=== PATIENT | female | born 1965 | race Caucasian/White ===

== ENCOUNTER 2018-10-09 12:31 | Inpatient (IN) | payer SELFPAY ==
[2018-10-09] MEDS ORDERED: LORazepam 2 MG/ML VIAL ONE (13:15)
[2018-10-09 13:20] LABS: Absolute Monocytes 0.3 K/uL (0.1-1.3); Basophils % 0.3 % (0-1.3); Hematocrit 40.2 % (36.0-45.0); Lymphocytes % 19.2 % (15.3-44.8); MCH 30.6 pg (27.0-35.0); MCV 88.9 fL (80-100); MPV 7.7 fL (7.6-11.3); Monocytes % 3.1 % (3.3-12.3); RBC Red Blood Cell Count 4.52 M/uL (3.86-4.86)
[2018-10-09 13:22] LABS: Protime INR 0.95
--- NOTE | 2018-10-09 13:34 | RAD REPORT ---
EXAM DESCRIPTION: CT - Head Brain Wo Cont - 10/09/2018 1:23 pm CLINICAL HISTORY: Transient alteration of awareness COMPARISON: None. TECHNIQUE: Axial 5 mm thick images of the head were obtained without IV contrast. All CT scans are performed using dose optimization technique as appropriate and may include automated exposure control or mA/KV adjustment according to patient size. FINDINGS: No intracranial hemorrhage, mass, edema or shift of mid-line structures. No acute infarcti on changes seen. No abnormal extra-axial fluid collections. Ventricles are normal. Mastoid air cells and visualized portions of the paranasal sinuses are clear. No acute bony findings. IMPRESSION: Negative non-contrast CT head examination.
[2018-10-09 13:37] LABS: ALT/SGPT 23 U/L (12-78); AST/SGOT 23 U/L (15-37); Albumin 3.8 g/dL (3.4-5.0); Alkaline Phosphatase 93 U/L (45-117); BUN Blood Urea Nitrogen 16 mg/dL (7-18); Bicarbonate 20 mmol/L (21-32); Bilirubin Direct 0.2 mg/dL (0-0.2); Bilirubin Total 0.5 mg/dL (0.2-1.0); Glucose Level 164 mg/dL (74-106); Potassium 3.7 mmol/L (3.5-5.1); Protein, Total 7.7 g/dL (6.4-8.2); Sodium Level 138 mmol/L (136-145)
[2018-10-09] MEDS ORDERED: NA CHLORIDE 0.9% 1,000 ML ONE ×2 (13:42→16:17)
[2018-10-09 14:48] LABS: Barbiturates NEGATIVE (NEGATIVE); Benzodiazepines NEGATIVE (NEGATIVE); Cocaine NEGATIVE (NEGATIVE); METHAMPHETAM NEGATIVE (NEGATIVE); Methadone NEGATIVE (NEGATIVE); Opiates NEGATIVE (NEGATIVE); Phencyclidine NEGATIVE (NEGATIVE); THC Cannibis NEGATIVE (NEGATIVE)
[2018-10-09 14:56] LABS: Arterial Blood Carboxyhemoglob 1.7 % (0-1.5); Blood O2 Saturation 96.7 % (92-98.5)
--- NOTE | 2018-10-09 16:12 | ER ---
Nurse's Notes [facility] Name: Doris Lazo Age: 53 yrs Sex: Female : 1965 Arrival Date: 10/09/2018 Time: 12:34 Bed 18 Private MD: Diagnosis: Toxic effect of other alcohols Presentation: 10/09 12:42 Presenting complaint: states: "She's been acting confused this morning and not aj really talking to anyone. No one has been home with her since Wednesday so we don't know how long this has been going on. I think it may be from her drinking, but we really don't know when she's drinking because she hides it." Patient appears obtunded. Oriented to person and situation. Ketones noted on breath. Transition of care: patient was not received from another setting of care. Onset of symptoms is unknown. Risk Assessment: Do you want to hurt yourself or someone else? Patient reports no desire to harm self or others. Initial Sepsis Screen: Does the patient meet any 2 criteria? HR > 90 bpm. Does the patient have a suspected source of infection?. Care prior to arrival: None. 12:42 Method Of Arrival: Wheelchair aj 12:42 Acuity: CHARLIE 2 aj Triage Assessment: 12:46 The onset of the patients symptoms was at an unknown time. General: Appears in no aj apparent distress. uncomfortable, Behavior is anxious, crying, Smells of ketones. EENT: Oral mucosa is dry. Neuro: Level of Consciousness is awake, confused, Oriented to person, situation, Gait is unsteady, Speech with expressive aphasia noted, Facial symmetry appears normal. Respiratory: Airway is patent Respiratory effort is even, unlabored, Respiratory pattern is symmetrical, tachypnea. Derm: Skin is intact, is healthy with good turgor, Skin is pink, warm \\T\\ dry. normal. 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 - Social history:: Smoking status: unknown Patient uses alcohol. - Ebola Screening: : Patient negative for fever greater than or equal to 101.5 degrees Fahrenheit, and additional compatible Ebola Virus Disease symptoms Patient denies exposure to infectious person Patient denies travel to an Ebola-affected area in the 21 days before illness onset No symptoms or risks identified at this time. Screenin:47 Abuse screen: Denies threats or abuse. Denies injuries from another. Nutritional iw screening: No deficits noted. Tuberculosis screening: No symptoms or risk factors identified. Fall Risk IV access (20 points). Assessment: 12:45 General: Appears uncomfortable, Behavior is cooperative. Pain: Denies pain. Neuro: em Level of Consciousness is awake, alert, obeys commands, Oriented to person, place, time, Speech is slurred, pt answers "yes" to everything asked. Facial symmetry appears normal, Pupils are PERRLA. Cardiovascular: Patient's skin is warm and dry. Rhythm is sinus tachycardia Chest pain is denied. Respiratory: Airway is patent Respiratory effort is even, unlabored, Respiratory pattern is regular, symmetrical. GI: Abdomen is flat. Derm: Skin is intact, Skin is pink, warm \\T\\ dry. Musculoskeletal: Reports weakness in right leg and left leg. 12:47 Reassessment: I agree with previous assessment. 12:48 Reassessment: at bedside to assess patient, pt is alert, oriented to person, iw place. 13:45 Reassessment: Patient appears in no apparent distress at this time. pt appears to be iw sleeping, awakens easily to verbal stimuli, appears more relaxed, HR down to 124, UZ=256/91, daughter at bedside, updated on POC, fluids infusing freely. 14:41 Reassessment: Patient appears in no apparent distress at this time. Patient and/or em family updated on plan of care and expected duration. Pain level reassessed. resting comfortably with eyes closed, skin warm pink and dry, respirations even and unlabored, easily awakens with verbal stimuli, family at bedside, pending lab results. 15:50 Reassessment: Patient appears in no apparent distress at this time. Patient and/or em family updated on plan of care and expected duration. Pain level reassessed. Patient is alert, oriented x 3, equal unlabored respirations, skin warm/dry/pink. 16:45 Reassessment: Patient appears in no apparent distress at this time. Patient and/or em family updated on plan of care and expected duration. Pain level reassessed. Patient is alert, oriented x 3, equal unlabored respirations, skin warm/dry/pink. pending room assignment Patient states symptoms have improved. 17:40 Reassessment: Patient appears in no apparent distress at this time. Patient and/or em family updated on plan of care and expected duration. Pain level reassessed. Patient is alert, oriented x 3, equal unlabored respirations, skin warm/dry/pink. pt reports drinking rubbing alcohol to "numb my feelings" denies being suicidal. 18:31 Reassessment: Patient appears in no apparent distress at this time. Patient and/or em family updated on plan of care and expected duration. Pain level reassessed. Patient is alert, oriented x 3, equal unlabored respirations, skin warm/dry/pink. Patient states symptoms have improved. 19:24 Reassessment: Patient appears in no apparent distress at this time. Patient and/or jd3 family updated on plan of care and expected duration. Pain level reassessed. Patient is alert, oriented x 3, equal unlabored respirations, skin warm/dry/pink. pt resting in bed with eyes closed, with even and unlabored respirations, no distress noted at this time. 20:14 Reassessment: Patient appears in no apparent distress at this time. No changes from jd3 previously documented assessment. Patient and/or family updated on plan of care and expected duration. Pain level reassessed. Patient is alert, oriented x 3, equal unlabored respirations, skin warm/dry/pink. Vital Signs: 12:46 BP 141 / 103; Pulse 148; Resp 25; Pulse Ox 97% on R/A; Weight 74.84 kg; Height 5 ft. 1 aj in. (154.94 cm); 13:32 BP 137 / 90; Pulse 114; Resp 20; Temp 99.1(O); Pulse Ox 96% on R/A; Pain 0/10; em 14:30 BP 135 / 89; Pulse 110; Resp 18; Pulse Ox 98% on R/A; em 15:30 BP 112 / 73; Pulse 123; Resp 19; Pulse Ox 97% on R/A; em 16:23 BP 124 / 71; Pulse 116; Resp 16; Pulse Ox 99% on R/A; em 17:47 BP 125 / 77; Pulse 117; Resp 19; Pulse Ox 97% on R/A; Pain 0/10; em 18:32 BP 110 / 63; Pulse 125; Resp 18; Pulse Ox 98% on R/A; em 19:23 BP 120 / 85; Pulse 115; Resp 16 S; Pulse Ox 97% on R/A; Pain 0/10; jd3 20:00 BP 97 / 69; Pulse 111; Resp 16 S; Pulse Ox 96% on R/A; jd3 12:46 Body Mass Index 31.18 (74.84 kg, 154.94 cm) aj ED Course: 12:34 Patient arrived in ED. mr 12:42 Olga Lidia Duong, RN is Primary Nurse. aj 12:45 Triage completed. aj 12:45 Gino Layne MD is Attending Physician. gs 12:45 Patient has correct armband on for positive identification. Fall risk band placed. em Placed in gown. Bed in low position. Call light in reach. Side rails up X2. Adult w/ patient. conveyor monitor on. Pulse ox on. NIBP on. 12:46 Arm band placed on left wrist. Patient placed in an exam room. aj 12:48 Notified ED physician of other Patient's condition and need for prompt evaluation. aj 13:00 Steve Xavier LVN is Primary Nurse. em 13:23 Head Brain Wo Cont In Process Unspecified. EDMS 14:31 Urine collected: straight cath specimen, sydnie colored. [facility] 14:31 Straight cath inserted, using sterile technique, 16 Fr. Specimen obtained. [facility] 14:32 Urine Drug Screen Sent. [facility] 16:10 Darrick Degroot MD is Hospitalizing Provider. gs 17:37 X-ray completed. Patient tolerated procedure well. Patient moved back from radiology. kp1 20:14 No provider procedures requiring assistance completed. Patient admitted, IV remains in jd3 place. Administered Medications: 13:18 Drug: Ativan 1 mg Route: IVP; Site: left antecubital; iw 13:38 Drug: NS 0.9% 1000 ml Route: IV; Rate: 1 bolus; Site: left antecubital; em 15:57 Follow up: IV Status: Completed infusion; IV Intake: 1000ml em 16:10 Drug: NS 0.9% 1000 ml Route: IV; Rate: 150 ml/hr; Site: left antecubital; em 20:14 Follow up: Response: No adverse reaction; IV Status: Infusion continued upon admission shiv Point of Care Testing: Blood Glucose: 12:46 Blood Glucose: 146 mg/dL; aj Ranges: Intake: 15:57 IV: 1000ml; Total: 1000ml. em Outcome: 16:12 Decision to Hospitalize by Provider. gs 20:15 Admitted to Med/surg accompanied by nurse, via stretcher, room 403, with chart, Report jd3 called to Ann CANTU 20:15 Condition: stable 20:15 Instructed on the need for admit, Demonstrated understanding of instructions. 20:16 Patient left the ED. shiv Signatures: Dispatcher [employer] Olga Lidia Alfonso, RN ALONDRA Abdifatah, Sandra mr Xavier, Steve, LABOR GANG SUPERVISOR LABOR GANG SUPERVISOR Colleen Horn, Elsi Martell RN, RN ALONDRA Angel, Heidi 5 Ghulam, Sanaz 1 Gino Layne MD MD gs Davies, Jonathon, RN RN jd3 Corrections: (The following items were deleted from the chart) 12:49 12:48 Reassessment: at bedside to assess patient iw
--- NOTE | 2018-10-09 16:13 | EDPHYS ---
Physician Documentation [facility] Name: Doris Lazo Age: 53 yrs Sex: Female : 1965 Arrival Date: 10/09/2018 Time: 12:34 Bed 18 Private MD: ED Physician Gino Layne HPI: 10/09 16:26 This 53 yrs old Female presents to ER via Wheelchair with complaints of gs Trouble Talking. 16:26 The patient presents with confusion. Onset: The symptoms/episode began/occurred 2 gs day(s) ago, and became persistent. Possible causes: alcohol, has a history of chronic alcohol abuse. Associated signs and symptoms: Pertinent positives: confusion, dizziness, Pertinent negatives: agitation, blurred vision. Patient's baseline: Neuro: alert and fully oriented, Motor: no deficits, Ambulation: walks without assistance, Speech: normal. The patient has experienced similar episodes in the past, a few times, but today's symptoms are worse. The patient has not recently seen a physician. 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 - Social history:: Smoking status: unknown Patient uses alcohol. - Ebola Screening: : Patient negative for fever greater than or equal to 101.5 degrees Fahrenheit, and additional compatible Ebola Virus Disease symptoms Patient denies exposure to infectious person Patient denies travel to an Ebola-affected area in the 21 days before illness onset No symptoms or risks identified at this time. ROS: 16:26 Unable to obtain ROS due to patient's inability to understand questions. gs Exam: 16:26 Head/Face: Normocephalic, atraumatic. Eyes: Pupils equal round and reactive to light, gs extra-ocular motions intact. Lids and lashes normal. Conjunctiva and sclera are non-icteric and not injected. Cornea within normal limits. Periorbital areas with no swelling, redness, or edema. ENT: Nares patent. No nasal discharge, no septal abnormalities noted. Tympanic membranes are normal and external auditory canals are clear. Oropharynx with no redness, swelling, or masses, exudates, or evidence of obstruction, uvula midline. Mucous membranes moist. Neck: Trachea midline, no thyromegaly or masses palpated, and no cervical lymphadenopathy. Supple, full range of motion without nuchal rigidity, or vertebral point tenderness. No Meningismus. Chest/axilla: Normal chest wall appearance and motion. Nontender with no deformity. No lesions are appreciated. Respiratory: Lungs have equal breath sounds bilaterally, clear to auscultation and percussion. No rales, rhonchi or wheezes noted. No increased work of breathing, no retractions or nasal flaring. Abdomen/GI: Soft, non-tender, with normal bowel sounds. No distension or tympany. No guarding or rebound. No evidence of tenderness throughout. Back: No spinal tenderness. No costovertebral tenderness. Full range of motion. 16:26 Skin: Warm, dry with normal turgor. Normal color with no rashes, no lesions, and no evidence of cellulitis. MS/ Extremity: Pulses equal, no cyanosis. Neurovascular intact. Full, normal range of motion. 16:26 Constitutional: The patient appears alert, awake. 16:26 Cardiovascular: Rate: tachycardic, Rhythm: regular, Pulses: no pulse deficits are appreciated, Heart sounds: normal. 16:26 ECG was reviewed by the Attending Physician. 16:26 Neuro: Orientation: to person, Mentation: slow to respond, confused, Cranial nerves: CN II- XII are normal as tested, Motor: moves all fours, strength is 5/5 in all extremities, Sensation: no obvious gross deficits, seizure activity, is not displayed by the patient. Vital Signs: 12:46 BP 141 / 103; Pulse 148; Resp 25; Pulse Ox 97% on R/A; Weight 74.84 kg; Height 5 ft. 1 aj in. (154.94 cm); 13:32 BP 137 / 90; Pulse 114; Resp 20; Temp 99.1(O); Pulse Ox 96% on R/A; Pain 0/10; em 14:30 BP 135 / 89; Pulse 110; Resp 18; Pulse Ox 98% on R/A; em 15:30 BP 112 / 73; Pulse 123; Resp 19; Pulse Ox 97% on R/A; em 16:23 BP 124 / 71; Pulse 116; Resp 16; Pulse Ox 99% on R/A; em 17:47 BP 125 / 77; Pulse 117; Resp 19; Pulse Ox 97% on R/A; Pain 0/10; em 18:32 BP 110 / 63; Pulse 125; Resp 18; Pulse Ox 98% on R/A; em 19:23 BP 120 / 85; Pulse 115; Resp 16 S; Pulse Ox 97% on R/A; Pain 0/10; jd3 20:00 BP 97 / 69; Pulse 111; Resp 16 S; Pulse Ox 96% on R/A; jd3 12:46 Body Mass Index 31.18 (74.84 kg, 154.94 cm) aj MDM: 12:53 Patient medically screened. 16:26 Differential Diagnosis: CVA, electrolyte abnormality, alcohol intoxication, gs intracranial bleed, overdose, sepsis. Data reviewed: vital signs, nurses notes. 16:47 ED course: osm gap 53 , no anion gap acidosis improving mental status finally admitted gs to isopropyl oh ingestion will admit.. 10/09 12:55 Order name: Urine Drug Screen; Complete Time: 15:40 10/09 13:12 Order name: Basic Metabolic Panel; Complete Time: 13:48 EDMS 10/09 13:12 Order name: Liver (Hepatic) Function; Complete Time: 13:48 EDMS 10/09 13:12 Order name: Acetaminophen Level; Complete Time: 13:48 EDMS 10/09 13:12 Order name: Alcohol Serum/Plasma; Complete Time: 13:48 EDMS 10/09 13:12 Order name: Head Brain Wo Cont; Complete Time: 13:48 EDMS 10/09 13:12 Order name: Salicylates Level; Complete Time: 13:48 EDMS 10/09 13:12 Order name: Osmolality, Serum; Complete Time: 15:40 EDMS 10/09 13:12 Order name: CBC with Automated Diff; Complete Time: 13:32 EDMS 10/09 13:12 Order name: Protime (+INR); Complete Time: 13:32 EDMS 10/09 13:13 Order name: Ammonia; Complete Time: 13:48 EDMS 10/09 14:01 Order name: ABG; Complete Time: 15:40 10/09 14:51 Order name: Urine Dipstick--Ancillary (enter results) bd 10/09 14:51 Order name: Urine --Ancillary (enter results) 10/09 17:06 Order name: Thoracolumbar Spine Ap; Complete Time: 18:36 EDOK 10/09 17:09 Order name: CBC without Diff EDOK 10/09 17:09 Order name: Comprehensive Metabolic Panel [facility] 10/09 12:55 Order name: EKG; Complete Time: 13:12 10/09 12:55 Order name: EKG - Nurse/Tech; Complete Time: 13:01 10/09 12:55 Order name: IV Saline Lock; Complete Time: 13:01 10/09 12:55 Order name: Labs collected and sent; Complete Time: 13:01 10/09 12:55 Order name: Urine Dipstick-Ancillary (obtain specimen); Complete Time: 14:26 gs EC:26 Rate is 126 beats/min. Rhythm is regular, Sinus tachycardia. OK interval is normal. QRS gs interval is normal. T waves are Flattened. Clinical impression: NSR w/ Non-specific ST/T Changes and Abnormal EKG without significant change. Interpreted by me. Administered Medications: 13:18 Drug: Ativan 1 mg Route: IVP; Site: left antecubital; iw 13:38 Drug: NS 0.9% 1000 ml Route: IV; Rate: 1 bolus; Site: left antecubital; em 15:57 Follow up: IV Status: Completed infusion; IV Intake: 1000ml em 16:10 Drug: NS 0.9% 1000 ml Route: IV; Rate: 150 ml/hr; Site: left antecubital; em 20:14 Follow up: Response: No adverse reaction; IV Status: Infusion continued upon admission j Point of Care Testing: Blood Glucose: 12:46 Blood Glucose: 146 mg/dL; aj Ranges: Critical Glucose Levels:Adult <50 mg/dl or >400 mg/dl <40 mg/dl or >180 mg/dl Disposition: 16:47 Critical Care:. Disposition: 10/09/18 16:12 Hospitalization ordered by Darrick Degroot for Observation. Preliminary diagnosis is Toxic effect of other alcohols. - Bed requested for Telemetry/MedSurg (observation). - Status is Observation. j - Condition is Stable. - Problem is new. - Symptoms have improved. UTI on Admission? No Critical care time excluding procedures: 16:47 Critical care time: Bedside Care: 15 minutes, Consultation: 20 minutes, Family gs Intervention: 20 minutes. Total time: 55 minutes Signatures: Dispatcher [employer] Olga Lidia Alfonso, RN Steve Torrez, FUNCTIONAL SUPPORT ANALYST FUNCTIONAL SUPPORT ANALYST Colleen Horn RN RN iw Solis, Maria ms Starr, Gregory, MD MD gs Davies, Jonathon, RN RN jd3 Corrections: (The following items were deleted from the chart) 13:17 13:12 Urine Drug Screen ordered. EDMS EDMS 13:22 13:12 CBC+H.LAB.BRZ ordered. EDMS EDMS 13:22 13:12 PROTIME (+INR)+COAG.LAB.BRZ ordered. EDMS EDMS 13:22 13:12 Head Brain Wo Cont+CT.RAD.BRZ ordered. EDMS EDMS 13:27 13:12 SALICYLATE+C.LAB.BRZ ordered. EDMS EDMS 13:28 13:12 ACETAMINOPHEN+C.LAB.BRZ ordered. EDMS EDMS 13:28 13:12 BASIC METABOLIC PANEL+C.LAB.BRZ ordered. EDMS EDMS 13:28 13:12 ETHANOL+C.LAB.BRZ ordered. EDMS EDMS 13:28 13:12 HEPATIC FUNCTION+C.LAB.BRZ ordered. EDMS EDMS 13:29 13:12 OSMOLALITY, SERUM+SC.LAB.BRZ ordered. EDMS EDMS 13:29 13:12 AMMONIA+C.LAB.BRZ ordered. EDMS EDMS 19:13 16:12 Hospitalization Ordered by Darrick Degroot MD for Observation. Preliminary ms diagnosis is Toxic effect of other alcohols. Bed requested for Telemetry/MedSurg (observation). Status is Observation. Condition is Stable. Problem is new. Symptoms have improved. UTI on Admission? No. gs 20:16 19:13 10/09/2018 16:12 Hospitalization Ordered by Darrick Degroot MD for Observation. jd3 Preliminary diagnosis is Toxic effect of other alcohols. Bed requested for Telemetry/MedSurg (observation). Status is Observation. Condition is Stable. Problem is new. Symptoms have improved. UTI on Admission? No. ms
--- NOTE | 2018-10-09 17:05 | P.HP ---
Certification for Inpatient Patient admitted to: Observation With expected LOS: <2 Midnights Practitioner: I am a practitioner with admitting privileges, knowledge of patient current condition, hospital course, and medical plan of care. Services: Services provided to patient in accordance with Admission requirements found in Title 42 Section 412.3 of the Code of Federal Regulations Patient History Date of Service: 10/09/18 Reason for admission: Back Pain and rubbing alcohol ingestion History of Present Illness: Patient is 53 years of age I did complaining of lower ext back pain for the past 2 days after lifting heavy material at work and then started drinking alcohol to alleviate the pain in addition to drinking Alexsander a bottle of rubbing alcohol according to the available over the counter again to relieve the pain patient is very alert responsive cooperative apart from bipolar disorder no other complaints Allergies No Known Allergies Allergy (Unverified 10/09/18 13:02) - Past Medical/Surgical History -: Bipolar disorder Review of Systems Unremarkable Musculoskeletal: Back Pain Physical Examination - Physical Exam General: Alert, Oriented x3 HEENT: Atraumatic Neck: Supple Respiratory: Clear to auscultation bilaterally Cardiovascular: No edema, Normal S1 S2 Gastrointestinal: Normal bowel sounds, Soft and benign Musculoskeletal: No clubbing, No swelling Integumentary: No rashes, No breakdown Neurological: Normal speech, Normal strength at 5/5 x4 extr, Cranial nerves 3- 12 intact - Studies Laboratory Data (last 24 hrs) 10/09/18 13:00: PT 11.2, INR 0.95 10/09/18 13:00: WBC 10.3, Hgb 13.9, Hct 40.2, Plt Count 351 10/09/18 13:00: Sodium 138, Potassium 3.7, BUN 16, Creatinine 2.30 H, Glucose 164 H, Total Bilirubin 0.5, AST 23, ALT 23, Alkaline Phosphatase 93 10/09/18 12:55: PT Cancelled, INR Cancelled 10/09/18 12:55: WBC Cancelled, Hgb Cancelled, Hct Cancelled, Plt Count Cancelled 10/09/18 12:55: Sodium Cancelled, Potassium Cancelled, BUN Cancelled, Creatinine Cancelled, Glucose Cancelled, Total Bilirubin Cancelled, AST Cancelled, ALT Cancelled, Alkaline Phosphatase Cancelled Assessment and Plan - Problems (Diagnosis) (1) Isopropyl alcohol poisoning Current Visit: Yes Status: Acute Plan: Patient is 53 years of age admitted complaining of severe lower back pain for the past 2 days since lifting heavy stuff at work place and to alleviate the pain she started drinking significant amount of alcohol including Alexsander a bottle of rubbing alcohol as verified by her has currently she is alert oriented responsive cooperative urinalysis is pending the [place] of isopropyl alcohol metabolism is marked ketonemia and a perez to urea in the absence of metabolic acidosis for isolated ingestion off isopropyl alcohol there is no role for antidotal therapy this is man has similar to ethanol overdose with observation hemodialysis is often indicated UDS of propofol collar is over 500 and with a smaller gap of 400 in this patient currently is only 53 for back pain needs to be evaluated with an x-ray possibly an MRI (2) Back pain Current Visit: Yes Status: Acute Plan: Patient complains of severe acute lower back pain this no evidence of any neurological deficit cranial labs a grossly normal strength is also normal of order some x-rays he had an MRI of ordered some pain medications in the meanwhile patient also has renal insufficiency Qualifiers: Back pain location: low back pain Chronicity: acute - Advance Directives Does patient have a Living Will: No Does patient have a Durable POA for Healthcare: No
[2018-10-09] MEDS ORDERED: CARISOPRODOL 350 MG TAB PO PRN (17:10)
--- NOTE | 2018-10-09 18:31 | RAD REPORT ---
EXAM DESCRIPTION: NM - Thoracolumbar Spine Ap Lat - 10/09/2018 5:37 pm CLINICAL HISTORY: Severe back pain COMPARISON: None. TECHNIQUE: AP and lateral views of the thoracolumbar spine were obtained. Imaging extended from T4 l evel to the mid L5 level. FINDINGS: In the [id number] from T4 through mid L5 there is no compression fracture. No lytic, sc lerotic or expansile bony destructive process. Mild endplate degenerative changes are present. No par aspinal mass. IMPRESSION: Mild degenerative changes in the thoracic spine. No acute findings seen from T4-mid L5.
[2018-10-09 21:24] LABS: Urine Blood TRACE (NEG); Urine Glucose NEGATIVE (NEG); Urine Protein 2+ (NEG); Urine Specific Gravity >1.030 (1.005-1.030)
[2018-10-09] MEDS: D5 0.9 NS 1,000 ML IV SCH (21:26)
[2018-10-09] MEDS: FENTANYL CITR 100 MCG/2 ML IV PRN (21:26)
[2018-10-09] MEDS: HYDROCODONE/APAP 5/325 MG TAB PO PRN (23:08)
[2018-10-10] MEDS: FENTANYL CITR 100 MCG/2 ML IV PRN ×4 (01:00→20:44)
[2018-10-10] MEDS: HYDROCODONE/APAP 5/325 MG TAB PO PRN ×4 (03:48→23:09)
[2018-10-10 05:59] LABS: Albumin 3.3 g/dL (3.4-5.0); Bilirubin Total 0.4 mg/dL (0.2-1.0); Potassium 3.4 mmol/L (3.5-5.1); Protein, Total 6.2 g/dL (6.4-8.2)
--- NOTE | 2018-10-10 07:04 | EKG ---
Test Date: 2018-10-09 Test Time: 12:55:58 [facility] Practitioner: LISANDRO MEASUREMENT RESULTS: Intervals: Rate: 126 TX: 154 QRSD: 76 QT: 304 QTc: 440 [place]: P: 54 TX: 154 QRS: 1 T: 58 INTERPRETIVE STATEMENTS: Sinus tachycardia Possible Anterior infarct, age undetermined Abnormal ECG Compared to ECG 04/26/2007 10:47:24 Myocardial infarct finding now present Sinus rhythm no longer present Atrial premature complex(es) no longer present Electronically Signed On 10-10-18 07:02:41 LIVE TRUCK OPERATOR by Jayro Stock
[2018-10-10 07:13] LABS: Hematocrit 34.6 % (36.0-45.0); MCH 30.3 pg (27.0-35.0); MCV 89.9 fL (80-100); RBC Red Blood Cell Count 3.85 M/uL (3.86-4.86)
[2018-10-10] MEDS: D5 0.9 NS 1,000 ML IV SCH ×2 (07:50→23:03)
[2018-10-10] MEDS ORDERED: INFLUENZA VACCINE (for 3y+) 0.5 ML DOSE IMVAC ONE (08:00)
--- NOTE | 2018-10-10 14:17 | P.PN ---
Subjective Date of Service: 10/10/18 Chief Complaint: Back Pain and rubbing alcohol ingestion Patient seen and examined at bedside with RN. Chart reviewed. Case discussed with family member and patient at bedside. Currently patient states that she has been having some lower back pain. The room does smell like alcohol. Patient educated extensively on alcohol ingestion. Has not been ambulating well. Has been complaining of having some nausea since the morning as well Review of Systems 10-point ROS is otherwise unremarkable Physical Examination - Vital Signs Temperature: 97.4 F Blood Pressure: 134/70 Pulse: 62 Respirations: 16 Pulse Ox (%): 97 - Physical Exam General: Alert, In no apparent distress HEENT: Atraumatic, PERRLA, EOMI Neck: Supple, JVD not distended Respiratory: Clear to auscultation bilaterally, Normal air movement Cardiovascular: Regular rate/rhythm, Normal S1 S2 Gastrointestinal: Normal bowel sounds, No tenderness Musculoskeletal: No tenderness Integumentary: No rashes Neurological: Normal speech, Normal tone, Normal affect Lymphatics: No axilla or inguinal lymphadenopathy - Studies Medications List Reviewed: Yes Assessment And Plan - Current Problems (Diagnosis) (1) TEE (acute kidney injury) Current Visit: Yes Status: Acute Plan: A K. I. most likely secondary to pain medication abuse versus alcohol ingestion -IV fluids at this time -await nephrotoxic agent (2) Isopropyl alcohol poisoning Onset Date: 10/10/18 Current Visit: Yes Status: Acute Plan: Intentional alcohol abuse to help alleviate the pain. -observe for next 24 hr at this time. -LFTs are within normal limits -creatinine elevated to 1.9. Today -will continue to monitor closely (3) Back pain Onset Date: 10/10/18 Current Visit: Yes Status: Chronic Plan: Chronic back pain. Acute exacerbation of pain -most likely secondary to osteoarthritis. Will continue to monitor closely Qualifiers: Back pain location: low back pain Chronicity: chronic Back pain laterality: unspecified Sciatica presence: unspecified whether sciatica present Qualified Code(s): M54.5 - Low back pain; G89.29 - Other chronic pain Discharge Plan: Home Plan to discharge in: 48 Hours - Code Status/Comfort Care Code Status Assessed: Yes Critical Care: No
[2018-10-11] MEDS: D5 0.9 NS 1,000 ML IV SCH ×3 (05:40→10:00)
[2018-10-11] MEDS: HYDROCODONE/APAP 5/325 MG TAB PO PRN ×2 (05:40→08:47)
[2018-10-11] MEDS: LISINOPRIL 20 MG TAB PO SCH (08:47)
[2018-10-11] MEDS: TRAMADOL HCL 50 MG TAB PO PRN ×2 (12:59→17:38)
--- NOTE | 2018-10-11 14:04 | P.PN ---
Subjective Date of Service: 10/11/18 Chief Complaint: Back Pain and rubbing alcohol ingestion Patient seen and examined at bedside with RN. Chart reviewed. Case discussed with family member and patient at bedside. Currently patient states that she has been having some lower back pain but much better than before. Still C/o of having nausea Review of Systems 10-point ROS is otherwise unremarkable Physical Examination - Vital Signs Temperature: 98.8 F Blood Pressure: 135/76 Pulse: 61 Respirations: 18 Pulse Ox (%): 99 - Physical Exam General: Alert, In no apparent distress HEENT: Atraumatic, PERRLA, EOMI Neck: Supple, JVD not distended Respiratory: Clear to auscultation bilaterally, Normal air movement Cardiovascular: Regular rate/rhythm, Normal S1 S2 Gastrointestinal: Normal bowel sounds, No tenderness Musculoskeletal: No tenderness Integumentary: No rashes Neurological: Normal speech, Normal tone, Normal affect Lymphatics: No axilla or inguinal lymphadenopathy - Studies Medications List Reviewed: Yes Assessment And Plan - Current Problems (Diagnosis) (1) TEE (acute kidney injury) Current Visit: Yes Status: Acute Plan: A K. I. most likely secondary to pain medication abuse versus alcohol ingestion -IV fluids at this time -avoid nephrotoxic agent (2) Isopropyl alcohol poisoning Onset Date: 10/10/18 Current Visit: Yes Status: Acute Plan: Intentional alcohol abuse to help alleviate the pain. -observe for next 24 hr at this time. -LFTs are within normal limits -creatinine elevated to 1.9 yesterday. Will recheck aaron -will continue to monitor closely (3) Back pain Onset Date: 10/10/18 Current Visit: Yes Status: Chronic Plan: Chronic back pain. Acute exacerbation of pain -most likely secondary to osteoarthritis. Will continue to monitor closely Qualifiers: Back pain location: low back pain Chronicity: chronic Back pain laterality: unspecified Sciatica presence: unspecified whether sciatica present Qualified Code(s): M54.5 - Low back pain; G89.29 - Other chronic pain Discharge Plan: Home Plan to discharge in: 48 Hours - Code Status/Comfort Care Code Status Assessed: Yes Critical Care: No
[2018-10-12] MEDS: TRAMADOL HCL 50 MG TAB PO PRN (00:05)
[2018-10-12 04:38] LABS: Absolute Lymphocytes (CBC) 1.6 K/uL (0.7-4.9); Absolute Monocytes 0.3 K/uL (0.1-1.3); Absolute Neutrophil 2.4 K/uL (1.8-8.0); Basophils % 0.3 % (0-1.3); Eosinophils % 1.9 % (0-4.4); Hematocrit 35.4 % (36.0-45.0); Lymphocytes % 36.4 % (15.3-44.8); MCH 30.3 pg (27.0-35.0); MCV 89.3 fL (80-100); MPV 8.1 fL (7.6-11.3); Monocytes % 6.1 % (3.3-12.3); RBC Red Blood Cell Count 3.97 M/uL (3.86-4.86)
[2018-10-12 04:54] LABS: Albumin 3.1 g/dL (3.4-5.0); Bilirubin Total 0.4 mg/dL (0.2-1.0); Potassium 3.3 mmol/L (3.5-5.1); Protein, Total 6.4 g/dL (6.4-8.2)
[2018-10-12] MEDS: LISINOPRIL 20 MG TAB PO SCH (11:01)
[2018-10-12] MEDS ORDERED: INFLUENZA VACCINE (for 3y+) 0.5 ML DOSE IMVAC ONE (12:00)
--- NOTE | 2018-10-12 16:40 | P.DS ---
Admission Date: 10/11/18 Discharge Date: 10/12/18 Disposition: ROUTINE DISCHARGE Discharge Condition: GOOD Reason for Admission: Back Pain and rubbing alcohol ingestion - Problems (1) TEE (acute kidney injury) Onset Date: 10/12/18 Status: Acute (2) Isopropyl alcohol poisoning Onset Date: 10/10/18 Status: Acute (3) Back pain Onset Date: 10/10/18 Status: Chronic Qualifiers: Back pain location: low back pain Chronicity: chronic Back pain laterality: unspecified Sciatica presence: unspecified whether sciatica present Qualified Code(s): M54.5 - Low back pain; G89.29 - Other chronic pain Brief History of Present Illness: Patient is 53 years of age I did complaining of lower ext back pain for the past 2 days after lifting heavy material at work and then started drinking alcohol to alleviate the pain in addition to drinking Alexsander a bottle of rubbing alcohol according to the available over the counter again to relieve the pain patient is very alert responsive cooperative apart from bipolar disorder no other complaints Allergies Hospital Course: Overall during the hospital stay patient remained stable The patient was seen in the hospital for isopropyl alcohol ingestion. Which patient took to alleviate her pain at the house. Patient was monitored here for 48 hr as per poison control was guideline. Patient's lab work and liver function remained stable while here in the hospital. Patient also remained stable while here in the hospital. Patient had no had restrict reaction from the alcohol ingestion. Patient was educated extensively on the abuse potential of alcohol ingestion and proper usage of pain medication as well. Patient demonstrated understanding and thus was discharged home under stable condition. Vital Signs/Physical Exam: Temp Pulse Resp BP Pulse Ox 97.9 F 64 16 141/80 H 96 10/12/18 08:00 10/12/18 11:01 10/12/18 08:00 10/12/18 11:01 10/12/18 08:00 General: Alert, In no apparent distress HEENT: Atraumatic, PERRLA, EOMI Neck: Supple, JVD not distended Respiratory: Clear to auscultation bilaterally, Normal air movement Cardiovascular: Regular rate/rhythm, Normal S1 S2 Gastrointestinal: Normal bowel sounds, No tenderness Musculoskeletal: No tenderness Integumentary: No rashes Neurological: Normal speech, Normal tone, Normal affect Lymphatics: No axilla or inguinal lymphadenopathy Laboratory Data at Discharge: WBC 4.3 K/uL (4.3-10.9) D 10/12/18 04:07 Hgb 12.0 g/dL (12.0-15.0) 10/12/18 04:07 Hct 35.4 % (36.0-45.0) L 10/12/18 04:07 Plt Count 172 K/uL (152-406) 10/12/18 04:07 PT 11.2 SECONDS (9.5-12.5) 10/09/18 13:00 INR 0.95 10/09/18 13:00 Sodium 142 mmol/L (136-145) 10/12/18 04:07 Potassium 3.3 mmol/L (3.5-5.1) L 10/12/18 04:07 BUN 5 mg/dL (7-18) L 10/12/18 04:07 Creatinine 1.00 mg/dL (0.55-1.3) 10/12/18 04:07 Glucose 105 mg/dL (74-106) 10/12/18 04:07 Total Bilirubin 0.4 mg/dL (0.2-1.0) 10/12/18 04:07 AST 44 U/L (15-37) H 10/12/18 04:07 ALT 33 U/L (12-78) 10/12/18 04:07 Alkaline Phosphatase 69 U/L (45-117) 10/12/18 04:07 Home Medications: Lisinopril [Prinivil*] 20 mg PO DAILY 10/10/18 Phentermine HCl 37.5 mg PO DAILY 10/10/18 Sertraline [Zoloft*] 100 mg PO DAILY 10/10/18 Trazodone [Desyrel*] 50 mg PO DAILY 10/10/18 Patient Discharge Instructions: F.U with PCP in 1 to 2 week post discharge. No New medication Diet: Regular Activity: Ad adriana Followup: Darrick Degroot MD [Primary Care Provider] - 1-2 Weeks (call to schedule an appointment)
== END 2018-10-12 11:32 | disposition home or self-care (01) | DRG 684 ==
LOC: SUPCPDRO 12:31 → ER 12:31 → ERHOLD 17:06 → 4TH 19:58 → OBSVTOIN 10-11 12:16
PROVIDERS: ADMIT Internal Medicine Sleep Medicine; ATTEND Family Medicine
DX: N17.9 Acute kidney failure, unspecified (principal); T49.4X5A Adverse effect of keratolytics, keratoplastics, and other hair treatment drugs and preparations, initial encounter; G89.29 Other chronic pain; Y92.019 Unspecified place in single-family (private) house as the place of occurrence of the external cause; M54.5 Low back pain
CPT/HCPCS: 36415; 51702; 70450; 72080; 80048; 80053; 80076; 80307; 80320; 80329; 81003; 81025; 82140; 82805; 82962; 83930; 85025; 85027; 85610; 93005; 96361; 96374; 99285; G0008; G0378; J3010; J7030; Q2035